=== PATIENT | male | born 1940 | race Caucasian/White ===

== ENCOUNTER 2017-02-20 13:34 | Inpatient (IN) | payer OTHER, MEDICARE ==
[~2017-02-20] VITALS: Ht 180.3 cm; Wt 63.2 kg
[~2017-02-20 13:34] MED LIST: GLIM1TAB PO; GLUCTAB PO; HYDR-3533 PO; LANTUS2P SC
[2017-02-20 13:40] VITALS: BP 130/65; PULSE 66; RESP 18; TEMP 98.1; O2SAT 99
[2017-02-20] MEDS ORDERED: MORPHINE SULFATE 4 MG/ML INJ IV PUSH ONE (13:45)
[2017-02-20] MEDS ORDERED: SODIUM CHLORIDE 0.9% FLUSH 10 ML FLUSH IVF PRN (13:45)
--- NOTE | 2017-02-20 14:42 | PD ---
HPI Chief Complaint: Fall Time Seen by Provider: 13:44 Travel History International Travel<30 days: No Contact w/Intl Traveler<30days: No Traveled to known affect area: No History of Present Illness HPI 37-year-old male presents to the ED for evaluation of 4/10 left hip pain. Pain is constant, worsened to 10/10 by any attempted ROM. Onset after the patient caught his foot while attempting to get out of his truck and fell to the concrete. He denies hitting his head or loss of consciousness. He states that he has been unable to ambulate since the accident. He states that his son picked him up and put him on the sofa where he has stayed until today. He states that he attempted to get up to go to the bathroom today and fell again. Again denies hitting his head or loss of consciousness. Denies previous injury to the hip. No other somatic complaints. Denies blood thinners. States that he last ate around 8 AM. PFSH Past Medical History Cancer: No Cardiovascular Problems: No Diabetes: Yes Patient Takes Glucophage: No Diminished Hearing: No Genitourinary: No Immune Disorder: No Musculoskeletal: No Neurologic: No Psychiatric: No Reproductive: No Respiratory: No Immunizations Current: Yes Dilation and Curettage (D&C): No Tubal Ligation: No Past Surgical History Section: Yes Social History Alcohol Use: No Tobacco Use: Yes (2 ppd) Substance Use: No Allergies-Medications (Allergen,Severity, Reaction): Coded Allergies: No Known Allergies (Verified , 12/22/15) Reported Meds & Prescriptions Reported Meds & Active Scripts Active Lortab 5 mg/325 mg (Hydrocodone/Acetaminophen 5 mg/325 mg) 1 Tab 1 Tab PO Q6H PRN Reported Lantus (Insulin Glargine) 100 Units/Ml Inj 10 Unit SC HS Metformin (Metformin HCl) 500 Mg Tab 1,000 PO BID Glimepiride 1 Mg Tab 0 PO Review of Systems Except as stated in HPI: all other systems reviewed are Neg Physical Exam Narrative GENERAL: Well-nourished, well-developed thin white male in no acute distress. SKIN: Focused skin assessment warm/dry. There is a 4 cm superficial abrasion of the anterior left [place] with surrounding erythema. Nontender. No warmth. No active bleeding. HEAD: Normocephalic. EYES: No scleral icterus. No injection or drainage. NECK: Supple, trachea midline. No JVD or lymphadenopathy. CARDIOVASCULAR: Regular rate and rhythm without murmurs, gallops, or rubs. RESPIRATORY: Breath sounds equal bilaterally. No accessory muscle use. GASTROINTESTINAL: Abdomen soft, non-tender, nondistended. MUSCULOSKELETAL: No cyanosis, or edema. FOCUSED LEFT LOWER EXTREMITY EXAM: 2+ DP pulse. Leg is resting in external rotation. No shortening noted. Tender to palpation of the anterolateral aspect of the hip and groin. Attempted internal and external rotation elicits pain. Patient is able to wiggle the toes and ankle. Sensation intact to light touch distally. BACK: Nontender without obvious deformity. No CVA tenderness. Data Data Last Documented VS Vital Signs Date Time Temp Pulse Resp B/P (MAP) Pulse Ox O2 Delivery O2 Flow Rate FiO2 02/20/17 13:40 98.1 66 18 130/65 (86) 99 Orders Orders Hip, Uni(Ap&Lat) W Ap Pelvis (02/20/17 13:44) Iv Access Insert/Monitor (02/20/17 13:44) Oximetry (02/20/17 13:44) Ecg Monitoring (02/20/17 13:44) Sodium Chloride 0.9% Flush (Ns Flush) (02/20/17 13:45) Chest, Single Ap (02/20/17 ) Morphine Inj (Morphine Inj) (02/20/17 14:45) Electrocardiogram (02/20/17 15:21) Complete Blood Count With Diff (02/20/17 15:21) Comprehensive Metabolic Panel (02/20/17 15:21) Prothrombin Time / Inr (Pt) (02/20/17 15:21) Act Partial Throm Time (Ptt) (02/20/17 15:21) Urinalysis - C+S If Indicated (02/20/17 15:21) Type And Screen (02/20/17 15:21) Urinary Catheter Insert/Apply (02/20/17 15:21) Admit Order (Ed Use Only) (02/20/17 16:03) Labs Laboratory Tests Test 02/20/17 15:20 02/20/17 15:30 Urine Color YELLOW Urine Turbidity CLEAR Urine pH 6.5 Urine Specific [place] 1.007 Urine Protein NEG mg/dL Urine Glucose (UA) NEG mg/dL Urine Ketones TRACE mg/dL Urine Occult Blood NEG Urine Nitrite NEG Urine Bilirubin NEG Urine Urobilinogen LESS THAN 2.0 MG/DL Urine Leukocyte Esterase NEG Urine RBC LESS THAN 1 /hpf Urine WBC LESS THAN 1 /hpf Microscopic Urinalysis Comment CATH-CULT NOT IND White Blood Count 17.3 TH/MM3 Red Blood Count 3.89 MIL/MM3 Hemoglobin 11.7 GM/DL Hematocrit 35.9 % Mean Corpuscular Volume 92.2 FL Mean Corpuscular Hemoglobin 30.1 PG Mean Corpuscular Hemoglobin Concent 32.7 % Red Cell Distribution Width 13.9 % Platelet Count 262 TH/MM3 Mean Platelet Volume 7.9 FL Neutrophils (%) (Auto) 71.0 % Lymphocytes (%) (Auto) 22.6 % Monocytes (%) (Auto) 5.5 % Eosinophils (%) (Auto) 0.6 % Basophils (%) (Auto) 0.3 % Neutrophils # (Auto) 12.3 TH/MM3 Lymphocytes # (Auto) 3.9 TH/MM3 Monocytes # (Auto) 1.0 TH/MM3 Eosinophils # (Auto) 0.1 TH/MM3 Basophils # (Auto) 0.1 TH/MM3 CBC Comment DIFF FINAL Differential Comment Prothrombin Time 10.5 SEC Prothromb Time International Ratio 1.0 RATIO Activated Partial Thromboplast Time 25.6 SEC Blood Urea Nitrogen 12 MG/DL Creatinine 0.84 MG/DL Random Glucose 105 MG/DL Total Protein 7.0 GM/DL Albumin 3.1 GM/DL Calcium Level 8.7 MG/DL Alkaline Phosphatase 90 U/L Aspartate Amino Transf (AST/SGOT) 11 U/L Alanine Aminotransferase (ALT/SGPT) 17 U/L Total Bilirubin 0.8 MG/DL Sodium Level 140 MEQ/L Potassium Level 4.0 MEQ/L Chloride Level 106 MEQ/L Carbon Dioxide Level 27.7 MEQ/L Anion Gap 6 MEQ/L Estimat Glomerular Filtration Rate 89 ML/MIN [facility] Medical Decision Making Medical Screen Exam Complete: Yes Emergency Medical Condition: Yes Differential Diagnosis Fracture versus dislocation versus contusion versus cellulitis versus other Narrative Course 77-year-old male with PMH of DM presents to the ED for evaluation of left hip pain. Onset after he caught his toe while attempting to get out of his truck yesterday. He states that he fell to the concrete has been unable to ambulate since then. Denies blood thinner use. Last ate around 8 AM today. Vitals reviewed. Exam suspicious for hip fracture. Neurovascularly intact distally. Patient was ordered nothing by mouth. X-rays reveals intertrochanteric fracture by my read. I spoke to Dr. Caryn Howell's PA, who recommends that the patient be admitted to medicine and made nothing by mouth at midnight tonight. They plan surgery tomorrow. CBC, CMP, UA, coags, type and screen, EKG, chest x-ray ordered and pending. Johnson catheter was placed. I discussed the fracture and the need for surgical intervention with the patient. He is agreeable to admission. Spoke with Dr. Ramos who agrees to accept the patient to the medicine service. Please see orthopedic and medicine notes for disposition. Rupa Xiong Feb 20, 2017 14:42
[2017-02-20] MEDS ORDERED: MORPHINE SULFATE 2 MG/ML INJ IV PUSH ONE (14:45)
--- NOTE | 2017-02-20 15:21 | PD ---
Data Data Last Documented VS Vital Signs Date Time Temp Pulse Resp B/P (MAP) Pulse Ox O2 Delivery O2 Flow Rate FiO2 02/20/17 16:00 98.0 77 18 139/74 (95) 99 Orders Orders Hip, Uni(Ap&Lat) W Ap Pelvis (02/20/17 13:44) Iv Access Insert/Monitor (02/20/17 13:44) Oximetry (02/20/17 13:44) Ecg Monitoring (02/20/17 13:44) Sodium Chloride 0.9% Flush (Ns Flush) (02/20/17 13:45) Chest, Single Ap (02/20/17 ) Morphine Inj (Morphine Inj) (02/20/17 14:45) Electrocardiogram (02/20/17 15:21) Complete Blood Count With Diff (02/20/17 15:21) Comprehensive Metabolic Panel (02/20/17 15:21) Prothrombin Time / Inr (Pt) (02/20/17 15:21) Act Partial Throm Time (Ptt) (02/20/17 15:21) Urinalysis - C+S If Indicated (02/20/17 15:21) Type And Screen (02/20/17 15:21) Urinary Catheter Insert/Apply (02/20/17 15:21) Admit Order (Ed Use Only) (02/20/17 16:03) Labs Laboratory Tests Test 02/20/17 15:20 02/20/17 15:30 Urine Color YELLOW Urine Turbidity CLEAR Urine pH 6.5 Urine Specific [place] 1.007 Urine Protein NEG mg/dL Urine Glucose (UA) NEG mg/dL Urine Ketones TRACE mg/dL Urine Occult Blood NEG Urine Nitrite NEG Urine Bilirubin NEG Urine Urobilinogen LESS THAN 2.0 MG/DL Urine Leukocyte Esterase NEG Urine RBC LESS THAN 1 /hpf Urine WBC LESS THAN 1 /hpf Microscopic Urinalysis Comment CATH-CULT NOT IND White Blood Count 17.3 TH/MM3 Red Blood Count 3.89 MIL/MM3 Hemoglobin 11.7 GM/DL Hematocrit 35.9 % Mean Corpuscular Volume 92.2 FL Mean Corpuscular Hemoglobin 30.1 PG Mean Corpuscular Hemoglobin Concent 32.7 % Red Cell Distribution Width 13.9 % Platelet Count 262 TH/MM3 Mean Platelet Volume 7.9 FL Neutrophils (%) (Auto) 71.0 % Lymphocytes (%) (Auto) 22.6 % Monocytes (%) (Auto) 5.5 % Eosinophils (%) (Auto) 0.6 % Basophils (%) (Auto) 0.3 % Neutrophils # (Auto) 12.3 TH/MM3 Lymphocytes # (Auto) 3.9 TH/MM3 Monocytes # (Auto) 1.0 TH/MM3 Eosinophils # (Auto) 0.1 TH/MM3 Basophils # (Auto) 0.1 TH/MM3 CBC Comment DIFF FINAL Differential Comment Prothrombin Time 10.5 SEC Prothromb Time International Ratio 1.0 RATIO Activated Partial Thromboplast Time 25.6 SEC Blood Urea Nitrogen 12 MG/DL Creatinine 0.84 MG/DL Random Glucose 105 MG/DL Total Protein 7.0 GM/DL Albumin 3.1 GM/DL Calcium Level 8.7 MG/DL Alkaline Phosphatase 90 U/L Aspartate Amino Transf (AST/SGOT) 11 U/L Alanine Aminotransferase (ALT/SGPT) 17 U/L Total Bilirubin 0.8 MG/DL Sodium Level 140 MEQ/L Potassium Level 4.0 MEQ/L Chloride Level 106 MEQ/L Carbon Dioxide Level 27.7 MEQ/L Anion Gap 6 MEQ/L Estimat Glomerular Filtration Rate 89 ML/MIN Hemoglobin A1c 7.8 % Phosphorus Level 2.4 MG/DL Magnesium Level 1.9 MG/DL 25-Hydroxy Vitamin D Total 28.9 ng/ML MDM Supervised Visit with JUHI: No Differential Diagnosis This report is in ERROR Please disregard this report and all prior copies ! This report is in ERROR Please disregard this report and all prior copies ! This report is in ERROR Please disregard this report and all prior copies ! Scripts Insulin Detemir Inj (Levemir Inj) 1,000 unit/ 10 ML Vial 13 UNITS SQ HS for Blood Sugar Management, #30 INJECTION Do not mix with any other Insulin. Prov: Jason Davis MD 02/23/17 Glimepiride (Amaryl) 1 Mg Tab 1 MG PO BID@0800,1700 for Blood Sugar Management, #60 TAB Prov: Jason Davis MD 02/23/17 Calcium Carbonate-Vitamin D (Calcium 600+D 200) 600-200 Mg-Unit Tab 1 TAB PO BID for Nutritional Supplement for 30 Days, #60 TAB 0 Refills Prov: Dante Velazquez PA/Head Waiter/Waitress Banquet PA 02/21/17 Cholecalciferol (Vitamin D3) 2,000 Unit Cap 2000 UNITS PO DAILY for Nutritional Supplement for 30 Days, CAP 0 Refills Prov: Dante Velazquez PA/Head Waiter/Waitress Banquet PA 02/21/17 Ergocalciferol (Ergocalciferol) 50,000 Unit Cap 71846 UNITS PO Q7D for Nutritional Supplement, #6 CAP Prov: Dante Velazquez PA/Head Waiter/Waitress Banquet PA 02/21/17 Rivaroxaban (Xarelto) 10 Mg Tab 10 MG PO DAILY for Blood Clot Prevention, #14 TAB 0 Refills Prov: Dante Velazquez PA/Head Waiter/Waitress Banquet PA 02/21/17 Hydrocodone-Acetaminophen (Hydrocodone-Acetaminophen) 7.5 Mg-325 Mg Tab 1 TAB PO Q4H Y for PAIN, #60 TAB 0 Refills Prov: Dante Velazquez PA/Head Waiter/Waitress Banquet PA 02/21/17 Walker/Adult/Folding (Walker/Adult/Folding) 1 Mis Mis EA .ROUTE DIRECTED, #1 0 Refills Prov: Dante Velazquez PA/Head Waiter/Waitress Banquet PA 02/21/17 Cristopher Marrero MD Feb 20, 2017 15:21
--- NOTE | 2017-02-20 15:22 | RADRPT ---
EXAM DATE/TIME: 02/20/2017 14:36 [facility] COMPARISON: CHEST SINGLE AP, December 22, 2015, 15:09. INDICATIONS : Trauma. MEDICAL HISTORY : None. SURGICAL HISTORY : None. ENCOUNTER: Initial ACUITY: 1 day PAIN SCORE: 0/10 LOCATION: Bilateral chest FINDINGS: No new focal pleural or parenchymal opacities. Cardiomediastinal contours are stable. Bony thorax is intact. CONCLUSION: 1. No acute abnormality or significant interval change. Reggie Del Toro MD on February 20, 2017 at 15:18 Board Certified Radiologist. This report was verified electronically.
--- NOTE | 2017-02-20 15:23 | RADRPT ---
EXAM DATE/TIME: 02/20/2017 14:44 [facility] COMPARISON: No previous studies available for comparison. INDICATIONS : Trauma. MEDICAL HISTORY : None. SURGICAL HISTORY : None. ENCOUNTER: Initial ACUITY: 1 day PAIN SCORE: 4/10 LOCATION: Left Hip FINDINGS: Minimally displaced intertrochanteric fracture of the left femur. Joint spaces are maintained in polo omic alignment. Sacral arches are intact. No significant soft tissue abnormality. CONCLUSION: 1. Left femoral intertrochanteric fracture. Reggie Del Toro MD on February 20, 2017 at 15:19 Board Certified Radiologist. This report was verified electronically.
[2017-02-20 15:49] LABS: BLOOD, URINE NEG (NEG); GLUCOSE,URINE NEG (NEG); KETONE, URINE TRACE mg/dL (NEG); NITRITE,URINE NEG (NEG); PH, URINE 6.5 (5.0-8.5); URINE COLOR YELLOW (YELLW/STRAW)
[2017-02-20 15:50] LABS: AUTOMATED NEUTROPHIL # 12.3 TH/MM3 (1.8-7.7); BASOPHIL # 0.1 TH/MM3 (0-0.2); BASOPHIL % 0.3 % (0.0-2.0); EOSINOPHIL # 0.1 TH/MM3 (0-0.4); EOSINOPHIL % 0.6 % (0.0-4.0); HEMATOCRIT 35.9 % (39.0-51.0); HEMO FLAGS DIFF FINAL; LYMPH % 22.6 % (9.0-44.0); LYMPHOCYTE # 3.9 TH/MM3 (1.0-4.8); MEAN CELL VOLUME 92.2 FL (80.0-100.0); MEAN CORPUSCULAR HEMOGLOBIN 30.1 PG (27.0-34.0); MEAN CORPUSCULAR HGB CONC 32.7 % (32.0-36.0); MONO % 5.5 % (0.0-8.0); PLATELET COUNT 262 TH/MM3 (150-450); RED BLOOD COUNT 3.89 MIL/MM3 (4.50-5.90); RED CELL DISTRIBUTION WIDTH 13.9 % (11.6-17.2); WHITE BLOOD COUNT 17.3 TH/MM3 (4.0-11.0)
[2017-02-20 15:51] LABS: COMMENT (UR) CATH-CULT NOT IND; CULTURE IF INDICATED CATH CULTURE NOT IND
[2017-02-20 16:00] VITALS: BP 139/74; PULSE 77; RESP 18; TEMP 98; O2SAT 99
[2017-02-20 16:06] LABS: APTT (PATIENT) 25.6 SEC (24.3-30.1); PROTHROMBIN TIME - PATIENT 10.5 SEC (9.8-11.6)
[2017-02-20 16:15] LABS: ALT (GPT) 17 U/L (12-78); ANION GAP 6 MEQ/L (5-15); AST (GOT) 11 U/L (15-37); BICARBONATE 27.7 MEQ/L (21.0-32.0); BLOOD UREA NITROGEN 12 MG/DL (7-18); CHLORIDE 106 MEQ/L (98-107); GLOMERULAR FILTRATION RATE 89 ML/MIN (>89); SODIUM (NA) 140 MEQ/L (136-145)
[2017-02-20 16:17] LABS: ALKALINE PHOSPHATASE 90 U/L (45-117); TOTAL BILIRUBIN ADULT 0.8 MG/DL (0.2-1.0)
[2017-02-20 16:50] VITALS: BP 141/86; PULSE 75; RESP 16; O2SAT 100
--- NOTE | 2017-02-20 17:16 | HHI.HP ---
HPI Service [facility] Hospitalists Primary Care Physician Unknown Admission Diagnosis left intertrochanteric hip fracture Diagnoses: Chief Complaint: Left hip pain s/p fall Travel History International Travel<30 Days: No Contact w/Intl Traveler <30 Da: No Traveled to Known Affected Are: No History of Present Illness Written by Migdalia Schmitz, acting as scribe for Dr. Ramos on 02/20/17 at 17: 16. This is a 77yo male with a PMHX of DM type 2 and ongoing tobaccoism who presents to [facility] ED with complaints of left hip pain s/p fall. Patient states he caught his left foot while trying to get out of his truck and fell to the concrete. He denies hitting his head or loss of consciousness. He has not been able to bear any weight since the injury. He attempted to walk to the bathroom and fell again. In the ED, xray of the left hip was obtained and revealed an intertrochanteric hip fracture. Review of Systems Constitutional: DENIES: Diaphoretic episodes, Fatigue, Fever, Weight gain, Weight loss, Chills, Dizziness, Change in appetite Endocrine: DENIES: Heat/cold intolerance, Polydipsia, Polyuria Eyes: DENIES: Blurred vision, Diplopia, Eye inflammation, Eye pain Ears, nose, mouth, throat: DENIES: Tinnitus, Hearing loss, Vertigo, Nasal discharge Respiratory: COMPLAINS OF: Cough, Sputum production, DENIES: Apneas, Snoring, Wheezing, Hemoptysis Cardiovascular: DENIES: Chest pain, Palpitations, Syncope, Dyspnea on Exertion , PND Gastrointestinal: DENIES: Abdominal pain, Black stools, Bloody stools, Constipation, Diarrhea Musculoskeletal: COMPLAINS OF: Joint pain, DENIES: Muscle aches, Stiffness, Joint Swelling Integumentary: DENIES: Abnormal pigmentation, Nail changes, Rash Hematologic/lymphatic: DENIES: Bruising, Lymphadenopathy Immunologic/allergic: DENIES: Eczema, Urticaria Neurologic: COMPLAINS OF: Abnormal gait, DENIES: Headache, Localized weakness, Paresthesias, Seizures, Speech Problems Psychiatric: DENIES: Anxiety, Confusion, Mood changes, Depression, Hallucinations Except as stated in HPI: all other systems reviewed are Neg Past Family Social History Past Medical History DM, type 2 Tobaccoism Past Surgical History I&D right thumb Reported Medications Lortab 5 mg/325 mg (Hydrocodone/Acetaminophen 5 mg/325 mg) 1 Tab 1 Tab PO Q6H PRN Lantus (Insulin Glargine) 100 Units/Ml Inj 10 Unit SC HS Metformin (Metformin HCl) 500 Mg Tab 1,000 PO BID Glimepiride 1 Mg Tab 0 PO Allergies: Coded Allergies: No Known Allergies (Verified , 12/22/15) Active Ordered Medications Current Medications Medications (Trade) Dose Ordered Sig/Jerry Route Start Time Stop Time Status Last Admin (NS Flush) 2 ml UNSCH PRN IVF 02/20/17 13:45 Family History Reviewed with patient, noncontributory Social History Patient smokes one pack of cigarettes per day. He denies any EtOH use or illicit drug use. Physical Exam Vital Signs Vital Signs Date Time Temp Pulse Resp B/P (MAP) Pulse Ox O2 Delivery O2 Flow Rate FiO2 02/20/17 16:50 75 16 141/86 (104) 100 Room Air 02/20/17 13:40 98.1 66 18 130/65 (86) 99 Physical Exam GENERAL: This is a well-nourished, well-developed patient, in no apparent distress. Awake and alert. SKIN: Cool and dry. (+)wound 4cm superficial abrasion on LLE. HEAD: Atraumatic. Normocephalic. No temporal or scalp tenderness. EYES: Pupils equal round and reactive. Extraocular motions intact. No scleral icterus. No injection or drainage. ENT: Nose without bleeding or purulent drainage. Throat without erythema, tonsillar hypertrophy or exudate. Uvula midline. Airway patent. NECK: Trachea midline. No lymphadenopathy. Supple, nontender, no meningeal signs. CARDIOVASCULAR: Regular rate and rhythm without murmurs, gallops, or rubs. RESPIRATORY: Coarse BS noted in all lung figueroa. (+)Rhonchi. GASTROINTESTINAL: Abdomen soft, non-tender, nondistended. No hepato-splenomegaly , or palpable masses. No guarding. GENITOURINARY: Hebert in place. MUSCULOSKELETAL: Extremities without clubbing, cyanosis, or edema. Left leg externally rotated. Left hip pain elicited with any attempts at ROM. NEUROLOGICAL: Awake and alert. Able to move all extremities except left hip. Motor and sensory function intact distally LLE. Normal speech. PSYCHIATRIC: Appropriate affect and mood. Normal insight and judgement. Laboratory Laboratory Tests Test 02/20/17 15:20 02/20/17 15:30 Urine Color YELLOW Urine Turbidity CLEAR Urine pH 6.5 Urine Specific [place] 1.007 Urine Protein NEG Urine Glucose (UA) NEG Urine Ketones TRACE Urine Occult Blood NEG Urine Nitrite NEG Urine Bilirubin NEG Urine Urobilinogen LESS THAN 2.0 Urine Leukocyte Esterase NEG Urine RBC LESS THAN 1 Urine WBC LESS THAN 1 Microscopic Urinalysis Comment CATH-CULT NOT IND White Blood Count 17.3 Red Blood Count 3.89 Hemoglobin 11.7 Hematocrit 35.9 Mean Corpuscular Volume 92.2 Mean Corpuscular Hemoglobin 30.1 Mean Corpuscular Hemoglobin Concent 32.7 Red Cell Distribution Width 13.9 Platelet Count 262 Mean Platelet Volume 7.9 Neutrophils (%) (Auto) 71.0 Lymphocytes (%) (Auto) 22.6 Monocytes (%) (Auto) 5.5 Eosinophils (%) (Auto) 0.6 Basophils (%) (Auto) 0.3 Neutrophils # (Auto) 12.3 Lymphocytes # (Auto) 3.9 Monocytes # (Auto) 1.0 Eosinophils # (Auto) 0.1 Basophils # (Auto) 0.1 CBC Comment DIFF FINAL Differential Comment Prothrombin Time 10.5 Prothromb Time International Ratio 1.0 Activated Partial Thromboplast Time 25.6 Blood Urea Nitrogen 12 Creatinine 0.84 Random Glucose 105 Total Protein 7.0 Albumin 3.1 Calcium Level 8.7 Alkaline Phosphatase 90 Aspartate Amino Transf (AST/SGOT) 11 Alanine Aminotransferase (ALT/SGPT) 17 Total Bilirubin 0.8 Sodium Level 140 Potassium Level 4.0 Chloride Level 106 Carbon Dioxide Level 27.7 Anion Gap 6 Estimat Glomerular Filtration Rate 89 Result Diagram: 02/20/17 1530 02/20/17 1530 Imaging Last Impressions Hip and Pelvis X-Ray 02/20/17 1344 Signed Impressions: Service Date/Time: Monday, February 20, 2017 14:44 - CONCLUSION: 1. Left femoral intertrochanteric fracture. Reggie Del Toro MD Chest X-Ray 02/20/17 0000 Signed Impressions: Service Date/Time: Monday, February 20, 2017 14:36 - CONCLUSION: 1. No acute abnormality or significant interval change. MD Litzy Mandel VTE Risk Assessment Caprini VTE Risk Assessment: Mod/High Risk (score >= 2) Caprini Risk Assessment Model Point Value = 1 Point Value = 2 Point Value = 3 Point Value = 5 Age 41-60 Minor surgery BMI > 25 kg/m2 Swollen legs Varicose veins or History of unexplained or recurrent spontaneous Oral contraceptives or hormone replacement Sepsis (< 1 month) Serious lung disease, including pneumonia (< 1 month) Abnormal pulmonary function Acute myocardial infarction Congestive heart failure (< 1 month) History of inflammatory bowel disease Medical patient at bed rest Age 61-74 Arthroscopic surgery Major open surgery (> 45 min) Laparoscopic surgery (> 45 min) Malignancy Confined to bed (> 72 hours) Immobilizing plaster cast Central venous access Age >= 75 History of VTE Family history of VTE Factor V Leiden Prothrombin 20759G Lupus anticoagulant Anticardiolipin antibodies Elevated serum homocysteine Heparin-induced thrombocytopenia Other congenital or acquired thrombophilia Stroke (< 1 month) Elective arthroplasty Hip, pelvis, or leg fracture Acute spinal cord injury (< 1 month) Prophylaxis Regimen Total Risk Factor Score Risk Level Prophylaxis Regimen 0-1 Low Early ambulation 2 Moderate Order ONE of the following: *Sequential Compression Device (SCD) *Heparin 5000 units SQ BID 3-4 Higher Order ONE of the following medications: *Heparin 5000 units SQ TID *Enoxaparin/Lovenox 40 mg SQ daily (WT < 150 kg, CrCl > 30 mL/min) *Enoxaparin/Lovenox 30 mg SQ daily (WT < 150 kg, CrCl > 10-29 mL/min) *Enoxaparin/Lovenox 30 mg SQ BID (WT < 150 kg, CrCl > 30 mL/min) AND/OR *Sequential Compression Device (SCD) 5 or more Highest Order ONE of the following medications: *Heparin 5000 units SQ TID (Preferred with Epidurals) *Enoxaparin/Lovenox 40 mg SQ daily (WT < 150 kg, CrCl > 30 mL/min) *Enoxaparin/Lovenox 30 mg SQ daily (WT < 150 kg, CrCl > 10-29 mL/min) *Enoxaparin/Lovenox 30 mg SQ BID (WT < 150 kg, CrCl > 30 mL/min) AND *Sequential Compression Device (SCD) Assessment and Plan Assessment and Plan Left intertrochanteric hip fracture - Xray left hip reveals minimally displaced intertrochanteric fracture of the left femur, images personally reviewed - Orthopedics consulted by ED. They plan for surgery tomorrow. - NPO after MN - pain management with bowel regimen - hebert care - obtain Vitamin D level Leukocytosis - possibly reactive - patient is afebrile. Does not appear septic. - UA negative - CXR no acute abnormality appreciated, images personally reviewed DM, type 2 - diabetic diet - accucheck - ISS - hold home diabetic medications for now Ongoing tobaccoism Suspect underlying COPD - discussed importance of smoking cessation. Nicotine patch ordered. - Duonebs scheduled and as needed - monitor respiratory status DVT prophylaxis - chemoprophylaxis contraindicated secondary to upcoming surgical procedure - Bilateral SCD/YARELIS hose This note was transcribed by veronica SCHMITZ PAC,[]. I, Dr. Roberto Ramos personally performed the history, physical exam, and medical decision making; and confirmed the accuracy of the information in the transcribed note. Authenticated by Dr. Roberto Ramos on 02/20/17 at 17:54. Code Status FULL CODE Discussed Condition With ED physician, patient, nursing staff Physician Certification 2 Midnight Certification Type: Admission for Inpatient Services Order for Inpatient Services The services are ordered in accordance with Medicare regulations or non- Medicare payer requirements, as applicable. In the case of services not specified as inpatient-only, they are appropriately provided as inpatient services in accordance with the 2-midnight benchmark. Estimated LOS (days): 3 3 days is the estimated time the patient will need to remain in the hospital, assuming treatment plan goals are met and no additional complications. Post-Hospital Plan: Not yet determined Migdalia Schmitz Feb 20, 2017 17:16 Roberto Ramos DO Feb 20, 2017 17:55
[2017-02-20] MEDS ORDERED: ACETAMINOPHEN 325 MG TAB PO PRN (18:00)
[2017-02-20] MEDS ORDERED: SENNOSIDES 8.6 MG TAB PO PRN (18:00)
[2017-02-20] MEDS ORDERED: BISACODYL 10 MG SUPP RECTAL PRN (18:00)
[2017-02-20] MEDS ORDERED: oxyCODONE/ACETAMINOPHEN 5 MG/325 MG TAB PO PRN (18:00)
[2017-02-20] MEDS ORDERED: MAGNESIUM HYDROXIDE SUSP 30 ML CUP PO PRN (18:00)
[2017-02-20] MEDS ORDERED: NALOXONE HCL 0.4 MG/ML AMP IV PUSH PRN (18:00)
[2017-02-20] MEDS ORDERED: oxyCODONE/ACETAMINOPHEN 10 MG/325 MG TAB PO PRN (18:00)
[2017-02-20] MEDS ORDERED: MORPHINE SULFATE 2 MG/ML INJ IV PUSH PRN (18:00)
[2017-02-20] MEDS ORDERED: diphenhydrAMINE HCL 25 MG CAP PO PRN (18:00)
[2017-02-20] MEDS ORDERED: ONDANSETRON HCL 4 MG/2 ML VIAL IVP PRN (18:00)
[2017-02-20] MEDS ORDERED: LACTULOSE SYRUP 20 GM/30 ML CUP PO PRN (18:00)
[2017-02-20] MEDS: NICOTINE 21 MG/24 HR PATCH T-DERMAL SCH (18:15)
[2017-02-20 20:00] VITALS: BP 138/65; PULSE 72; RESP 18; TEMP 95; O2SAT 97
[2017-02-20] MEDS: DOCUSATE SODIUM 50 MG/SENNA 8.6 MG TAB PO SCH (20:32)
[2017-02-20 21:08] LABS: MAGNESIUM 1.9 MG/DL (1.5-2.5)
[2017-02-21] VITALS (7 sets, daily range): BP systolic 121–152; BP diastolic 59–75; PULSE 62–79; RESP 18; TEMP 96–99.5; O2SAT 95–97
[2017-02-21] MEDS ORDERED: INSULIN HUMAN REGULAR 1,000 UNITS/10 ML VIAL SQ PRN (01:15)
[2017-02-21] MEDS ORDERED: CHLORHEXIDINE GLUCONATE 2 % 1 PACK (2 CLOTHS) TOPICAL PRN (01:15)
[2017-02-21] MEDS ORDERED: POVIDONE IODINE 5% (ANTISEPSIS KIT) 4 APPLICATIONS EACH NARE PRN (01:15)
[2017-02-21] MEDS ORDERED: METOPROLOL TARTRATE 25 MG TAB PO PRN (01:15)
[2017-02-21] MEDS ORDERED: SODIUM CHLORID 0.9% 500 ML IV PRN (01:15)
[2017-02-21] MEDS ORDERED: LACTATED RINGER'S 1000 ML IV PRN (01:15)
[2017-02-21 06:42] LABS: AUTOMATED NEUTROPHIL # 9.4 TH/MM3 (1.8-7.7); BASOPHIL % 0.2 % (0.0-2.0); EOSINOPHIL # 0.2 TH/MM3 (0-0.4); EOSINOPHIL % 1.1 % (0.0-4.0); HEMATOCRIT 35.6 % (39.0-51.0); HEMO FLAGS DIFF FINAL; LYMPH % 25.5 % (9.0-44.0); LYMPHOCYTE # 3.6 TH/MM3 (1.0-4.8); MEAN CORPUSCULAR HEMOGLOBIN 31.3 PG (27.0-34.0); MEAN CORPUSCULAR HGB CONC 34.1 % (32.0-36.0); MONO % 6.8 % (0.0-8.0); NEUT % 66.4 % (16.0-70.0); PLATELET COUNT 254 TH/MM3 (150-450); RED BLOOD COUNT 3.87 MIL/MM3 (4.50-5.90); RED CELL DISTRIBUTION WIDTH 13.9 % (11.6-17.2); WHITE BLOOD COUNT 14.1 TH/MM3 (4.0-11.0)
--- NOTE | 2017-02-21 07:02 | PD.ORT.PN ---
Subjective Subjective Remarks fell out of truck no other associated inj. hx of DM and smokes 1 PPD left hip pain Objective Vitals Vital Signs Date Time Temp Pulse Resp B/P (MAP) Pulse Ox O2 Delivery O2 Flow Rate FiO2 02/21/17 04:00 99.2 70 18 130/59 (82) 95 02/21/17 00:00 98.8 68 18 126/68 (87) 97 02/20/17 20:00 95.0 72 18 138/65 (89) 97 02/20/17 16:50 75 16 141/86 (104) 100 Room Air 02/20/17 16:00 98.0 77 18 139/74 (95) 99 02/20/17 13:40 98.1 66 18 130/65 (86) 99 I/O 02/20/17 02/20/17 02/20/17 02/21/17 02/21/17 02/21/17 07:00 15:00 23:00 07:00 15:00 23:00 Output Total 950 ml Balance -950 ml Output Urine Total 950 ml # Bowel Movements 0 Result Diagram: 02/21/17 0612 02/20/17 1530 Other Results Laboratory Tests Test 02/20/17 15:30 Prothromb Time International Ratio 1.0 RATIO Prothrombin Time 10.5 SEC (9.8-11.6) Imaging Last 24 hours Impressions Hip and Pelvis X-Ray 02/20/17 1344 Signed Impressions: Service Date/Time: Monday, February 20, 2017 14:44 - CONCLUSION: 1. Left femoral intertrochanteric fracture. Reggie Del Toro MD Objective Remarks LLE: pain with hip motion. no pain in knee or ankle. nvi Assessment & Plan Assessment and Plan 1) Leftt Intertroch hip fx -npo -consents -surgery this AM POST OP: -WBAT -daily dressing changes POD 2 -ortho cleared for DC home as soon as patient able to ambulate safely and pain controlled -may require SNF. CM for DC planning -f/u with Justyna or PA in 2 weeks -scripts on chart Dante Velazquez/Dogman/Woman PA Feb 21, 2017 07:02
[2017-02-21 07:04] LABS: ALT (GPT) 15 U/L (12-78); ANION GAP 7 MEQ/L (5-15); AST (GOT) 8 U/L (15-37); BICARBONATE 28.3 MEQ/L (21.0-32.0); BLOOD UREA NITROGEN 10 MG/DL (7-18); CHLORIDE 104 MEQ/L (98-107); GLOMERULAR FILTRATION RATE 103 ML/MIN (>89); POTASSIUM 4.2 MEQ/L (3.5-5.1); SODIUM (NA) 139 MEQ/L (136-145)
[2017-02-21] MEDS ORDERED: HYDR-3580 PO (07:04)
[2017-02-21] MEDS ORDERED: WALKER/ADULT/FO1 MIS (07:04)
[2017-02-21] MEDS ORDERED: XARE10TA PO (07:04)
--- NOTE | 2017-02-21 07:06 | HHI.FF ---
Face to Face Verification Diagnosis: (1) Intertrochanteric fracture of right hip Physical Therapy Gait training Hip: Hip fracture, Protocol: Right Right LE Weight Bearing: WB as tolerated Nursing Dressing Changes: Daily dressing change, 4x4s, Paper tape, Xeroform I have seen patient Alfredo Mantilla on 02/21/17. My clinical findings support the need for the requested home health care services because: Ltd mobility - disease progression I certify that my clinical findings support that this patient is homebound because: Post-op weakness Dante Velazquez/Insole Taper JONATHAN Feb 21, 2017 07:06
[2017-02-21 07:07] LABS: ALKALINE PHOSPHATASE 88 U/L (45-117); TOTAL BILIRUBIN ADULT 0.9 MG/DL (0.2-1.0)
[2017-02-21] MEDS ORDERED: ACETAMINOPHEN 1000 MG/100 ML 100 ML IV ONE (07:11)
[2017-02-21] MEDS ORDERED: VITA2000 PO (07:16)
[2017-02-21] MEDS ORDERED: VITA500012 PO (07:16)
[2017-02-21] MEDS ORDERED: CALCTAB19 PO (07:16)
[2017-02-21] MEDS ORDERED: ceFAZolin 2 GM PREMIX 50 ML ONE (07:36)
[2017-02-21] MEDS ORDERED: VANCOMYCIN HCL 1000 MG VIAL ONE (07:36)
[2017-02-21] MEDS ORDERED: SODIUM CHLOR 0.9% 250 ML INJ 250 ML ONE (07:37)
[2017-02-21] MEDS: RESP: ALBUTEROL 2.5 MG/IPRATROPIUM 0.5 MG NEB (SCH) NEB ×4 (08:00→20:00)
[2017-02-21] MEDS ORDERED: BUPIVACAINE/EPINEPHRINE 0.25% PF 30 ML VIAL ONE (08:03)
[2017-02-21 08:14] LABS: HEMOGLOBIN A1a 0.9 %; HEMOGLOBIN A1b 2.3 %; HEMOGLOBIN Ao 82.4 %; HEMOGLOBIN LA1C 1.8 %; HEMOGLOBIN P3 4.2 %
--- NOTE | 2017-02-21 08:14 | PD.OP ---
cc: Misbah Rubin MD Operative Report Date of Surgery: Feb 21, 2017 Preoperative Diagnosis: left hip intertroch fracture Postoperative Diagnosis: Procedure: Left hip reduction and intramedullary nail fixation Anesthesia: Gen. Surgeon: Misbah Rubin Bonding Machine Operator(s): IVANA Schumacher PA-C The surgical procedure was assisted by my physician assistant field hockey coach. My P.A. presence was necessary throughout this case for the manipulation and positioning of the surgical extremity. My P.A. was assisting me throughout the duration of this procedure. The skill set of a physician assistant field hockey coach was medically necessary to complete this procedure. During the surgical case the surgical scheduler was working at the back table and the physician assistant field hockey coach was directly assisting me. Operation and Findings: Implants used: [10]mm 130 Synthes TFNA short troch nail Plan of activity: Weight-bear as tolerated Patient was seen and evaluated preoperatively. The patient has significant hip pain from intertrochanteric hip fracture. The risk and benefits of surgery were discussed in depth with the patient to include bleeding infection nonunion malunion and need for hip replacement painful hardware as well as medical competitions including but not stroke heart attack and . Informed consent was obtained. Operative site was marked. Patient was brought to the operating room and placed on fracture table. IV sedation was administered by anesthesiologist. Timeout procedure was performed. Hip and leg were prepped with alcohol followed by DuraPrep and draped in the usual sterile fashion. IV antibiotics were given prior to incision. Procedure began with reduction of fracture. Traction was applied. The leg was manipulated to achieve reduction. Excellent reduction was achieved. Fluoroscopy was used to confirm reduction. A three inch incision was made proximal to the trochanter. Subcutaneous tissue was dissected bluntly. Guidepin was placed at the tip of the trochanter and advanced into the femoral canal. Fluoroscopy confirmed appropriate guidepin placement. A opening reamer was placed over the guidepin. The Synthes TFNA nail was attached to the insertion handle. Nail was now placed through the tip of the trochanter into the femoral canal. Fluoroscopy confirmed appropriate nail placement. A second incision was made over the lateral thigh. Cannulas were placed through the insertion handle down to the femur. Guidepin was now placed through the femoral nail into the center of the femoral head. Fluoroscopy confirmed appropriate guidepin placement. Screw length was measured. Cannulated drill was placed over the guidepin. Appropriate length lag screw was now placed. Traction was released and compression was applied. The set screw was now tightened in dynamic mode. Using the insertion handle as a guide a distal interlocking screw was drilled and placed. Final fluoroscopy revealed well aligned fracture with well-placed hardware. Incision was closed with 3-0 Vicryl and estela. Sterile dressings were applied. Patient was awakened and transferred to recovery room. Misbah Rubin MD Feb 21, 2017 08:14
[2017-02-21] MEDS ORDERED: MORPHINE SULFATE 2 MG/ML INJ IV PUSH PRN (08:15)
[2017-02-21] MEDS ORDERED: DO NOT ADM ANY ANTICOAGULANT DRUGS PRN (09:00)
[2017-02-21] MEDS: DOCUSATE SODIUM 50 MG/SENNA 8.6 MG TAB PO SCH ×2 (09:00→20:46)
[2017-02-21] MEDS: REMOVE OLD PATCH T-DERMAL SCH (09:00)
[2017-02-21] MEDS ORDERED: ERGOCALCIFEROL (VIT D2) 50,000 UNIT CAP PO ONE (09:00)
--- NOTE | 2017-02-21 09:14 | MB ---
cc: ANGLE HANLEY DATE OF CONSULTATION: 02/21/2017 REASON FOR CONSULTATION Left hip intertrochanteric fracture. CONSULTING PHYSICIAN Dr. Roberto Ramos HISTORY Alfredo is a 77-year-old male who had a fall. He states he states that his left foot caught as he was getting out of his truck. He fell on the concrete. He had immediate left hip pain. He is unable to bear weight. He had difficulty ambulating. He has an emergency room where x-rays revealed a left hip intertrochanteric fracture. He is currently awake and alert on the orthopedic floor. His only complaint is his left hip. He has a history of diabetes and smoking. PAST MEDICAL HISTORY Illness type 2 diabetes smoking dependence. SURGERIES Right thumb surgery MEDICATIONS: Insulin Metformin Glimepiride Hydrocodone. ALLERGIES NO KNOWN DRUG ALLERGIES. SOCIAL HISTORY The patient does smoke a pack. Today he denies alcohol or drug use. REVIEW OF SYSTEMS The patient denies headache, visual changes, neck pain, chest pain, shortness of breath, abdominal pain, nausea or recent weight loss or numbness and extremities. He complains of left hip pain. Pain is worse with movement. REVIEW OF SYSTEMS The patient denies headache, visual changes, neck pain, chest pain, shortness of breath, abdominal pain, nausea, vomiting, fevers or chills, recent weight loss, loss of bowel or bladder incontinence or numbness or tingling of his extremities. He complains of left hip pain. PHYSICAL EXAMINATION: IN GENERAL: Physical dam the patient is a thin 77-year male in no acute distress. He is awake and alert. He is alert and oriented x3. VITAL SIGNS: temperature 99.2, pulse 70, respirations 18, blood pressure 130/59, O2 sat 95% on room air. HEAD, EYES, EARS, NOSE, AND THROAT: The patient is normocephalic. Pupils are equal. NECK: : Soft, nontender. Trachea is midline. ABDOMEN: Soft, nontender, nondistended. EXTREMITIES: Examination of bilateral upper extremities reveals no pain with shoulder, elbow or wrist motion. She has he has intact sensation in all fingers. She has good cap refill fingers. Skin is intact both hands. Parliamentary Counsel strength is +5. Examination of right leg reveals no pain with hip, knee or ankle motion. Skin is intact. Dorsalis pedis pulses palpable. Sensation is intact. Examination of left leg reveals pain with any hip motion. He is diffusely tender to palpation on the proximal femur. He has no tension around his knee, tibia or ankle. Skin is intact. Dorsalis pedis pulses palpable. Sensation is intact. X-RAYS X-rays of left hip reviewed x-rays reveal a displaced left hip intertrochanteric fracture. IMPRESSION 1. Type 2 diabetes 2. Smoking dependence 3. Left hip intertrochanteric fracture. PLAN The option discussed with the patient at this point I would recommend reduction intramedullary fixation of left hip. Risks of surgery include bleeding, infection, injury to blood vessels, nonunion, malunion, painful hardware as well as medical complications including blood clot, stroke, heart attack and . All questions were answered. I will plan on surgery today. A mid-level provider in my office (nurse practitioner or physician glass ribbon machine operator assistant) may see this patient on follow-up visits and continue to implement the objectives of this plan including: Starting or adjusting medications, injections , cast application, orthotics, brace application, physical therapy, radiological studies (including x-ray, MRI, CT, ultrasound, bone scan), vascular studies, neurologic studies, specialist consultation, and proceeding with surgical management, as appropriate. MD JOANIE Hoffman/yessi /8:03 AM /8:40 AM OMAR
--- NOTE | 2017-02-21 09:17 | RADRPT ---
EXAM DATE/TIME: 02/21/2017 08:10 [facility] COMPARISON: No previous studies available for comparison. INDICATIONS : Open reduction internal fixation of the left hip. MEDICAL HISTORY : None. SURGICAL HISTORY : None. ENCOUNTER: Subsequent ACUITY: 2 days PAIN SCORE: Non-responsive. LOCATION: Left hip. FINDINGS: Intertrochanteric nailing left hip in anatomic alignment. CONCLUSION: Anatomic alignment Roberto Barnett MD FACR on February 21, 2017 at 9:12 Board Certified Radiologist. This report was verified electronically.
[2017-02-21] MEDS: CALCIUM/VITAMIN D 250 MG/125 U TAB PO SCH ×3 (09:33→18:02)
[2017-02-21] MEDS: CHOLECALCIFEROL (VIT D3) 5000 UNIT CAP PO SCH (09:33)
[2017-02-21] MEDS: NICOTINE 21 MG/24 HR PATCH T-DERMAL SCH (09:34)
--- NOTE | 2017-02-21 09:57 | HHI.PR ---
Subjective Remarks The patient is in the chair says pain is fairly controlled by current pain medications. Denies nausea or vomiting. He has constipation. No fever or chills. No shortness of breath. Objective Vitals Vital Signs Date Time Temp Pulse Resp B/P (MAP) Pulse Ox O2 Delivery O2 Flow Rate FiO2 02/21/17 09:15 98.4 60 16 153/70 (97) 95 Room Air 02/21/17 09:00 61 16 144/66 (92) 95 Room Air 02/21/17 08:45 64 16 140/65 (90) 94 Room Air 02/21/17 08:39 98.4 66 16 161/67 (98) 100 Nasal Cannula 2 02/21/17 04:00 99.2 70 18 130/59 (82) 95 02/21/17 00:00 98.8 68 18 126/68 (87) 97 02/20/17 20:00 95.0 72 18 138/65 (89) 97 02/20/17 16:50 75 16 141/86 (104) 100 Room Air 02/20/17 16:00 98.0 77 18 139/74 (95) 99 02/20/17 13:40 98.1 66 18 130/65 (86) 99 I/O 02/20/17 02/20/17 02/20/17 02/21/17 02/21/17 02/21/17 06:59 14:59 22:59 06:59 14:59 22:59 Output Total 950 ml Balance -950 ml Output Urine Total 950 ml # Bowel Movements 0 Result Diagram: 02/21/17 0612 02/21/17 0612 Imaging Last Impressions Hip X-Ray 02/21/17 0000 Signed Impressions: Service Date/Time: Tuesday, February 21, 2017 08:10 - CONCLUSION: Anatomic alignment Roberto Barnett MD FACR Hip and Pelvis X-Ray 02/20/17 1344 Signed Impressions: Service Date/Time: Monday, February 20, 2017 14:44 - CONCLUSION: 1. Left femoral intertrochanteric fracture. Reggie Del Toro MD Chest X-Ray 02/20/17 0000 Signed Impressions: Service Date/Time: Monday, February 20, 2017 14:36 - CONCLUSION: 1. No acute abnormality or significant interval change. Reggie Del Toro MD Objective Remarks GENERAL: This is a well-nourished, well-developed patient, in no apparent distress. Awake and alert. SKIN: Cool and dry. (+)wound 4cm superficial abrasion on LLE. CARDIOVASCULAR: Regular rate and rhythm without murmurs, gallops, or rubs. RESPIRATORY: Coarse BS noted in all lung figueroa. (+)Rhonchi. GASTROINTESTINAL: Abdomen soft, non-tender, nondistended. No hepato-splenomegaly , or palpable masses. No guarding. GENITOURINARY: Hebert in place. MUSCULOSKELETAL: Extremities without clubbing, cyanosis, or edema. Left leg externally rotated. Left hip pain with dressing in place, CDI NEUROLOGICAL: Awake and alert. Able to move all extremities except left hip. Motor and sensory function intact distally LLE. Normal speech. PSYCHIATRIC: Appropriate affect and mood. Normal insight and judgement. Procedures S/P Left hip reduction and intramedullary nail fixation by Dr Jansen 02/21/17 A/P Assessment and Plan Left intertrochanteric hip fracture - Xray left hip reveals minimally displaced intertrochanteric fracture of the left femur, images personally reviewed - Orthopedics consulted by ED. - S/P Left hip reduction and intramedullary nail fixation by Dr Jansen - pain management with bowel regimen - hebert care - obtain Vitamin D level Leukocytosis - possibly reactive - patient is afebrile. Does not appear septic. - UA negative - CXR no acute abnormality appreciated, images personally reviewed DM, type 2 - diabetic diet - accucheck - ISS - hold home diabetic medications for now Ongoing tobaccoism Suspect underlying COPD - discussed importance of smoking cessation. Nicotine patch ordered. - Duonebs scheduled and as needed - monitor respiratory status DVT prophylaxis - chemoprophylaxis contraindicated secondary to upcoming surgical procedure - Bilateral SCD/YARELIS hose Discussed Condition With patient, nurse DC plan when improved and cleared by Laurie De La Cruz MD Feb 21, 2017 09:56
[2017-02-21] MEDS ORDERED: GLUCAGON 1 MG/ML VIAL OTHER PRN (22:15)
[2017-02-21] MEDS ORDERED: DEXTROSE 50% IN WATER 50 ML VIAL(D50) IV PUSH PRN (22:15)
[2017-02-21] MEDS: INSULIN ASPART SUPPLEMENTAL SCALE SQ SCH (23:16)
[2017-02-22] VITALS (8 sets, daily range): BP systolic 97–136; BP diastolic 53–72; PULSE 66–74; RESP 17–18; TEMP 97.3–98.6; O2SAT 93–97
[2017-02-22 07:17] LABS: BASOPHIL % 0.3 % (0.0-2.0); EOSINOPHIL # 0.1 TH/MM3 (0-0.4); EOSINOPHIL % 0.3 % (0.0-4.0); HEMATOCRIT 34.9 % (39.0-51.0); HEMO FLAGS DIFF FINAL; LYMPH % 22.8 % (9.0-44.0); LYMPHOCYTE # 3.9 TH/MM3 (1.0-4.8); MEAN CELL VOLUME 91.6 FL (80.0-100.0); MEAN CORPUSCULAR HGB CONC 33.8 % (32.0-36.0); MONO % 6.5 % (0.0-8.0); NEUT % 70.1 % (16.0-70.0); PLATELET COUNT 282 TH/MM3 (150-450); RED BLOOD COUNT 3.81 MIL/MM3 (4.50-5.90); RED CELL DISTRIBUTION WIDTH 13.8 % (11.6-17.2); WHITE BLOOD COUNT 17.1 TH/MM3 (4.0-11.0)
[2017-02-22 07:33] LABS: MAGNESIUM 1.8 MG/DL (1.5-2.5); POTASSIUM 4.2 MEQ/L (3.5-5.1)
[2017-02-22] MEDS: CALCIUM/VITAMIN D 250 MG/125 U TAB PO SCH ×3 (07:46→16:53)
[2017-02-22] MEDS: CHOLECALCIFEROL (VIT D3) 5000 UNIT CAP PO SCH (07:46)
[2017-02-22] MEDS: ENOXAPARIN SODIUM 30 MG/0.3 ML SYRINGE SQ SCH (07:47)
[2017-02-22] MEDS: ACETAMINOPHEN/HYDROcodone 325 MG/7.5 MG TAB PO PRN ×2 (07:47→15:03)
[2017-02-22] MEDS: NICOTINE 21 MG/24 HR PATCH T-DERMAL SCH (07:47)
[2017-02-22] MEDS: INSULIN ASPART SUPPLEMENTAL SCALE SQ SCH ×4 (08:00→20:46)
--- NOTE | 2017-02-22 08:07 | PD.ORT.PN ---
Subjective Subjective Remarks Sitting up in chair, ordering breakfast. Notes moderate pain left hip but 'its ok'. No complaints or new radiating leg pain, chest pain or shortness of breath. Using nicotine patch. Objective Vitals Vital Signs Date Time Temp Pulse Resp B/P (MAP) Pulse Ox O2 Delivery O2 Flow Rate FiO2 02/22/17 04:18 98.4 70 18 125/66 (85) 96 02/22/17 00:10 98.6 73 18 136/72 (93) 96 02/21/17 20:41 97.2 79 18 143/75 (97) 95 02/21/17 16:00 96.0 77 18 121/63 (82) 96 02/21/17 12:01 96 02/21/17 12:00 97.2 62 18 152/72 (98) 96 02/21/17 09:15 98.4 60 16 153/70 (97) 95 Room Air 02/21/17 09:00 61 16 144/66 (92) 95 Room Air 02/21/17 08:45 64 16 140/65 (90) 94 Room Air 02/21/17 08:39 98.4 66 16 161/67 (98) 100 Nasal Cannula 2 I/O 02/21/17 02/21/17 02/21/17 02/22/17 02/22/17 02/22/17 07:00 15:00 23:00 07:00 15:00 23:00 Intake Total 720 ml 240 ml 240 ml Output Total 950 ml 20 ml 400 ml 500 ml Balance -950 ml 700 ml -160 ml -260 ml Intake Oral 320 ml 240 ml 240 ml IV Total 400 ml Output Urine Total 950 ml 400 ml 500 ml Estimated Blood Loss 20 ml # Voids 2 # Bowel Movements 0 0 0 0 Result Diagram: 02/22/17 0630 02/22/17 0630 Imaging Last 24 hours Impressions Hip and Pelvis X-Ray 02/20/17 1344 Signed Impressions: Service Date/Time: Monday, February 20, 2017 14:44 - CONCLUSION: 1. Left femoral intertrochanteric fracture. Reggie Del Toro MD Objective Remarks Sitting up in chair bedside NAD LLE Hip dressing c/d/i, mild swelling, no erythema, minimal drainage, +motor at, +sens, +nvi Calf supple, neg homans Assessment & Plan Ortho Post Op Day #: 1 Problem List: Assessment and Plan pod#1 s/p ORIF left hip, IM rito Ortho stable today. PO pain meds. Lovenox for dvt prophylaxis. Change to xarelto at discharge. Dressing changes beginning pod#2 as ordered. WBAT. Walker as needed. Tobacco cessation reviewed. D/C planning in progress. HHC vs SNF - pt has and grandson at home. Jose Jansen or JONATHAN in 2 weeks Scripts on chart Kourtney Lopez Feb 22, 2017 08:07
[2017-02-22] MEDS: DOCUSATE SODIUM 50 MG/SENNA 8.6 MG TAB PO SCH ×2 (09:00→20:49)
[2017-02-22] MEDS: REMOVE OLD PATCH T-DERMAL SCH (09:00)
[2017-02-22] MEDS: RESP: ALBUTEROL 2.5 MG/IPRATROPIUM 0.5 MG NEB (SCH) NEB ×4 (09:39→20:17)
--- NOTE | 2017-02-22 14:30 | PD.WCN.NOT ---
Wound Consult Description: Order by for Left Leg Communicated with: Sidra BREWER [address] [place] [address] , Recommendation: 1) Apply skin prep to intact scabs on L elbow, R knee BID 2) Cleanse left lower extremity open wound with normal saline pat dry. 3) Skin prep to periwound intact eschar Cover with dry dressing Daily. 4) Follow up with out patient wound center. Additional Information: Patient was seen today by junior technical writer on [address] [place] [address]. Sidra BREWER [address] [place] [address] present with junior technical writer.Patient has a couple intact scabs on L upper extremity (~1.0cm x~1.0cm), R knee (~0.9cm x 1.0cm) no signs and symptoms of infection noted.Scabs cleansed with normal saline pat dry skin prep applied.Left lower extremity presents open moisture related wound 50% pink tissue present 50% brown scab intact.Wound measures 5.2cm x6.4cm x0.1cm scant serous fluid noted. Wound was dressing prior with Xeroform and gauze periwound maceration noted.Wound cleansed with normal saline pat dry Skin prep applied to periwound and intact scab covered with dry boarder gauze dressing.Patient tolerated wound care well.Dressing to Left hip dry and intact.Buttocks assessed due to patient stating bottom hurts.Skin intact ,blanchable no redness noted reinforced teaching on offloading and repositioning. Ostomy Date of Surgery: Feb 21, 2017 Genet Pena [facility] Feb 22, 2017 14:30
--- NOTE | 2017-02-22 14:38 | HHI.PR ---
Subjective Remarks Follow-up hip fracture, diabetes. The patient states that overall he feels better today. His glucose has been elevated. Objective Vitals Vital Signs Date Time Temp Pulse Resp B/P (MAP) Pulse Ox O2 Delivery O2 Flow Rate FiO2 02/22/17 12:33 97.3 74 18 113/63 (80) 93 02/22/17 09:40 94 02/22/17 08:00 97.8 74 17 124/69 (87) 95 02/22/17 04:18 98.4 70 18 125/66 (85) 96 02/22/17 00:10 98.6 73 18 136/72 (93) 96 02/21/17 20:41 97.2 79 18 143/75 (97) 95 02/21/17 16:00 96.0 77 18 121/63 (82) 96 I/O 02/21/17 02/21/17 02/21/17 02/22/17 02/22/17 02/22/17 07:00 15:00 23:00 07:00 15:00 23:00 Intake Total 720 ml 240 ml 240 ml Output Total 950 ml 20 ml 400 ml 500 ml Balance -950 ml 700 ml -160 ml -260 ml Intake Oral 320 ml 240 ml 240 ml IV Total 400 ml Output Urine Total 950 ml 400 ml 500 ml Estimated Blood Loss 20 ml # Voids 2 # Bowel Movements 0 0 0 0 Result Diagram: 02/22/17 0630 02/22/17 0630 Imaging Last Impressions Hip X-Ray 02/21/17 0000 Signed Impressions: Service Date/Time: Tuesday, February 21, 2017 08:10 - CONCLUSION: Anatomic alignment Roberto Barnett MD FACR Hip and Pelvis X-Ray 02/20/17 1344 Signed Impressions: Service Date/Time: Monday, February 20, 2017 14:44 - CONCLUSION: 1. Left femoral intertrochanteric fracture. Reggie Del Toro MD Chest X-Ray 02/20/17 0000 Signed Impressions: Service Date/Time: Monday, February 20, 2017 14:36 - CONCLUSION: 1. No acute abnormality or significant interval change. Reggie Del Toro MD Objective Remarks General: No acute distress. Heart: Regular rate and rhythm. No murmur. Lungs: Clear to auscultation bilaterally. No wheezes, rales, or rhonchi. Breathing is nonlabored. Abdomen: Soft, nontender, nondistended. Extremities: No lower extremity edema. Left lower leg wound bandaged. Psych: Alert and oriented. Procedures 02/21/17 Left hip reduction and intramedullary nail fixation Urinary Catheter: No Vascular Central Line Catheter: No A/P Assessment and Plan 1. Left intertrochanteric hip fracture: Appreciate orthopedic surgery recommendations. Status post left hip reduction with intramedullary nail fixation on 02/21/17. 2. Leukocytosis: Likely reactive. No apparent infection. 3. Diabetes mellitus, type II: Diabetic diet. Monitor Accu-Cheks and cover with sliding scale insulin. Restart Levemir, glimepiride. Hold metformin. 4. Tobacco abuse, suspect underlying COPD: Counseled to quit smoking. DuoNeb scheduled and as needed. 5. DVT prophylaxis: Lovenox. Jason Davis MD Feb 22, 2017 14:38
[2017-02-22] MEDS ORDERED: METOPROLOL TARTRATE 25 MG TAB PO ONE (15:00)
[2017-02-22] MEDS ORDERED: GLIMEPIRIDE 1 MG TAB PO SCH (16:00)
[2017-02-22] MEDS ORDERED: INSULIN DETEMIR 100 UNITS/ML VIAL SQ SCH (21:00)
[2017-02-23 00:31] VITALS: BP 118/63; PULSE 71; RESP 17; TEMP 98.6; O2SAT 95
[2017-02-23 04:11] VITALS: BP 104/62; PULSE 71; RESP 17; TEMP 99; O2SAT 95
[2017-02-23 08:00] VITALS: BP 108/55; PULSE 72; RESP 18; TEMP 98.2; O2SAT 93
[2017-02-23] MEDS ORDERED: GLIMEPIRIDE 1 MG TAB PO SCH (08:00)
[2017-02-23] MEDS: INSULIN ASPART SUPPLEMENTAL SCALE SQ SCH ×2 (08:00→11:31)
[2017-02-23] MEDS: RESP: ALBUTEROL 2.5 MG/IPRATROPIUM 0.5 MG NEB (SCH) NEB (08:00)
[2017-02-23] MEDS: DOCUSATE SODIUM 50 MG/SENNA 8.6 MG TAB PO SCH (08:44)
[2017-02-23] MEDS: CALCIUM/VITAMIN D 250 MG/125 U TAB PO SCH ×2 (08:44→11:31)
[2017-02-23] MEDS: ENOXAPARIN SODIUM 30 MG/0.3 ML SYRINGE SQ SCH (08:44)
[2017-02-23] MEDS: CHOLECALCIFEROL (VIT D3) 5000 UNIT CAP PO SCH (08:44)
[2017-02-23] MEDS: REMOVE OLD PATCH T-DERMAL SCH (08:45)
[2017-02-23] MEDS ORDERED: GLIM1 PO (08:45)
[2017-02-23] MEDS ORDERED: LEVEMIR SQ (08:45)
[2017-02-23] MEDS: NICOTINE 21 MG/24 HR PATCH T-DERMAL SCH (08:46)
--- NOTE | 2017-02-23 08:47 | HHI.PR ---
Subjective Remarks Follow up diabetes, hip fracture. The patient states that he feels sore today. Denies chest pain, dyspnea, nausea, vomiting. No bowel movement, but states that he does not feel constipated. Objective Vitals Vital Signs Date Time Temp Pulse Resp B/P (MAP) Pulse Ox O2 Delivery O2 Flow Rate FiO2 02/23/17 08:00 98.2 72 18 108/55 (72) 93 02/23/17 04:11 99.0 71 17 104/62 (76) 95 02/23/17 00:31 98.6 71 17 118/63 (81) 95 02/22/17 20:55 98.4 66 17 97/53 (68) 95 02/22/17 20:18 94 02/22/17 16:00 97.4 72 17 125/68 (87) 97 02/22/17 12:33 97.3 74 18 113/63 (80) 93 02/22/17 09:40 94 I/O 02/22/17 02/22/17 02/22/17 02/23/17 02/23/17 02/23/17 07:00 15:00 23:00 07:00 15:00 23:00 Intake Total 240 ml 420 ml 360 ml 120 ml Output Total 500 ml 400 ml Balance -260 ml 420 ml 360 ml -280 ml Intake Oral 240 ml 420 ml 360 ml 120 ml Output Urine Total 500 ml 400 ml # Voids 2 2 # Bowel Movements 0 0 0 0 Result Diagram: 02/22/17 0630 02/22/17 0630 Imaging Last Impressions Hip X-Ray 02/21/17 0000 Signed Impressions: Service Date/Time: Tuesday, February 21, 2017 08:10 - CONCLUSION: Anatomic alignment Roberto Barnett MD FACR Hip and Pelvis X-Ray 02/20/17 1344 Signed Impressions: Service Date/Time: Monday, February 20, 2017 14:44 - CONCLUSION: 1. Left femoral intertrochanteric fracture. Reggie Del Toro MD Chest X-Ray 02/20/17 0000 Signed Impressions: Service Date/Time: Monday, February 20, 2017 14:36 - CONCLUSION: 1. No acute abnormality or significant interval change. Reggie Del Toro MD Objective Remarks General: No acute distress. Heart: Regular rate and rhythm. No murmur. Lungs: Clear to auscultation bilaterally. No wheezes, rales, or rhonchi. Breathing is nonlabored. Abdomen: Soft, nontender, nondistended. Extremities: No lower extremity edema. Left lower leg wound bandaged. Psych: Alert and oriented. Procedures 02/21/17 Left hip reduction and intramedullary nail fixation Urinary Catheter: No Vascular Central Line Catheter: No A/P Assessment and Plan 1. Left intertrochanteric hip fracture: Appreciate orthopedic surgery recommendations. Status post left hip reduction with intramedullary nail fixation on 02/21/17. 2. Leukocytosis: Likely reactive. No apparent infection. 3. Diabetes mellitus, type II: Diabetic diet. Monitor Accu-Cheks and cover with sliding scale insulin. Continue Levemir, glimepiride. Hold metformin. Glucose control has improved. 4. Tobacco abuse, suspect underlying COPD: Counseled to quit smoking. DuoNeb scheduled and as needed. 5. DVT prophylaxis: Lovenox. Discharge Planning Per physical therapy, patient will need SNF at discharge. Case management to assist with discharge planning. Patient requesting [facility]. Jason Davis MD Feb 23, 2017 08:47
--- NOTE | 2017-02-23 08:48 | HHI.DCPOC ---
Discharge Care Plan Diagnosis: (1) Intertrochanteric fracture of right hip (2) Diabetes mellitus type 2, uncomplicated Goals to Promote Your Health * To prevent worsening of your condition and complications * To maintain your health at the optimal level Directions to Meet Your Goals Take your medications as prescribed Follow your dietary instruction Follow activity as directed Keep your appointments as scheduled Take your immunizations and boosters as scheduled If your symptoms worsen call your PCP, if no PCP go to Urgent Care Center or Emergency Room Smoking is Dangerous to Your Health. Avoid second hand smoke Call the 24-hour hour crisis hotline for domestic abuse at Jason Davis MD Feb 23, 2017 08:48
--- NOTE | 2017-02-23 09:56 | EKG ---
Date Performed: 02/20/2017 Time Performed: 16:53:38 PTAGE: 77 years EKG: Sinus rhythm MARKED LEFT AXIS DEVIATION LOW QRS VOLTAGE IN PRECORDIAL LEADS RIGHT BUNDLE BRANCH BLOCK ABNORMAL EC G PREVIOUS TRACING : 12/12/2012 15.56 Compared to prior tracing no significant change DOCTOR: Maci Lim Interpretating Date/Time 02/23/2017 09:54:24
[2017-02-23 10:08] VITALS: BP 127/55
[2017-02-23] MEDS: ACETAMINOPHEN/HYDROcodone 325 MG/7.5 MG TAB PO PRN ×2 (10:10→12:45)
[2017-02-23 10:56] LABS: AUTOMATED NEUTROPHIL # 7.8 TH/MM3 (1.8-7.7); BASOPHIL % 0.3 % (0.0-2.0); EOSINOPHIL # 0.4 TH/MM3 (0-0.4); EOSINOPHIL % 3.1 % (0.0-4.0); HEMATOCRIT 30.6 % (39.0-51.0); HEMO FLAGS DIFF FINAL; LYMPH % 28.1 % (9.0-44.0); LYMPHOCYTE # 3.5 TH/MM3 (1.0-4.8); MEAN CELL VOLUME 91.4 FL (80.0-100.0); MEAN CORPUSCULAR HEMOGLOBIN 32.1 PG (27.0-34.0); MEAN CORPUSCULAR HGB CONC 35.1 % (32.0-36.0); MONO % 5.5 % (0.0-8.0); PLATELET COUNT 247 TH/MM3 (150-450); RED BLOOD COUNT 3.35 MIL/MM3 (4.50-5.90); WHITE BLOOD COUNT 12.4 TH/MM3 (4.0-11.0)
[2017-02-23 11:16] LABS: BICARBONATE 31.3 MEQ/L (21.0-32.0); POTASSIUM 3.8 MEQ/L (3.5-5.1)
--- NOTE | 2017-02-23 11:31 | HHI.DS ---
Discharge Summary Admission Date Feb 20, 2017 at 16:04 Discharge Date: Feb 23, 2017 Admitting Diagnosis left intertrochanteric hip fracture (1) Diabetes mellitus type 2, uncomplicated ICD Code: E11.9 - Diabetes mellitus type 2, uncomplicated Status: Chronic (2) Intertrochanteric fracture of right hip ICD Code: S72.141A - Displaced intertrochanteric fracture of right femur, initial encounter for closed fracture Procedures 02/21/17 Left hip reduction and intramedullary nail fixation Brief History - From Admission This is a 77yo male with a PMHX of DM type 2 and ongoing tobaccoism who presents to [facility] ED with complaints of left hip pain s/p fall. Patient states he caught his left foot while trying to get out of his truck and fell to the concrete. He denies hitting his head or loss of consciousness. He has not been able to bear any weight since the injury. He attempted to walk to the bathroom and fell again. In the ED, xray of the left hip was obtained and revealed an intertrochanteric hip fracture. CBC/BMP: 02/23/17 1010 02/23/17 1000 Significant Findings Laboratory Tests Test 02/20/17 15:20 02/20/17 15:30 02/21/17 06:12 02/22/17 06:30 Urine Ketones TRACE mg/dL (NEG) White Blood Count 17.3 TH/MM3 (4.0-11.0) 14.1 TH/MM3 (4.0-11.0) 17.1 TH/MM3 (4.0-11.0) Red Blood Count 3.89 MIL/MM3 (4.50-5.90) 3.87 MIL/MM3 (4.50-5.90) 3.81 MIL/MM3 (4.50-5.90) Hemoglobin 11.7 GM/DL (13.0-17.0) 12.1 GM/DL (13.0-17.0) 11.8 GM/DL (13.0-17.0) Hematocrit 35.9 % (39.0-51.0) 35.6 % (39.0-51.0) 34.9 % (39.0-51.0) Neutrophils (%) (Auto) 71.0 % (16.0-70.0) 70.1 % (16.0-70.0) Neutrophils # (Auto) 12.3 TH/MM3 (1.8-7.7) 9.4 TH/MM3 (1.8-7.7) 12.0 TH/MM3 (1.8-7.7) Monocytes # (Auto) 1.0 TH/MM3 (0-0.9) 1.0 TH/MM3 (0-0.9) 1.1 TH/MM3 (0-0.9) Albumin 3.1 GM/DL (3.4-5.0) 3.2 GM/DL (3.4-5.0) Aspartate Amino Transf (AST/SGOT) 11 U/L (15-37) 8 U/L (15-37) Hemoglobin A1c 7.8 % (4.3-6.0) Phosphorus Level 2.4 MG/DL (2.5-4.9) 25-Hydroxy Vitamin D Total 28.9 ng/ML (30-100) 23.4 ng/ML (30-100) Blood Urea Nitrogen 19 MG/DL (7-18) Random Glucose 190 MG/DL (74-106) Estimat Glomerular Filtration Rate 82 ML/MIN (>89) Test 02/23/17 10:00 02/23/17 10:10 Random Glucose 139 MG/DL (74-106) Anion Gap 4 MEQ/L (5-15) White Blood Count 12.4 TH/MM3 (4.0-11.0) Red Blood Count 3.35 MIL/MM3 (4.50-5.90) Hemoglobin 10.8 GM/DL (13.0-17.0) Hematocrit 30.6 % (39.0-51.0) Neutrophils # (Auto) 7.8 TH/MM3 (1.8-7.7) Imaging Last Impressions Hip X-Ray 02/21/17 0000 Signed Impressions: Service Date/Time: Tuesday, February 21, 2017 08:10 - CONCLUSION: Anatomic alignment Roberto Barnett MD FACR Hip and Pelvis X-Ray 02/20/17 1344 Signed Impressions: Service Date/Time: Monday, February 20, 2017 14:44 - CONCLUSION: 1. Left femoral intertrochanteric fracture. Reggie Del Toro MD Chest X-Ray 02/20/17 0000 Signed Impressions: Service Date/Time: Monday, February 20, 2017 14:36 - CONCLUSION: 1. No acute abnormality or significant interval change. Reggie Del Toro MD PE at Discharge General: No acute distress. Heart: Regular rate and rhythm. No murmur. Lungs: Clear to auscultation bilaterally. No wheezes, rales, or rhonchi. Breathing is nonlabored. Abdomen: Soft, nontender, nondistended. Extremities: No lower extremity edema. Left lower leg wound bandaged. Psych: Alert and oriented. Hospital Course She was admitted for management of left intertrochanteric hip fracture. Orthopedic surgery was consulted. Intramedullary nail fixation was done on 02/21. Routine postoperative care was continued. The patient's glucose increased and his diabetic medications were restarted with the exception of metformin. Glucose control improved. [place] to be stable for discharge to SNF. Pt Condition on Discharge: Stable Discharge Disposition: Discharge to SNF Discharge Time: > 30 minutes Discharge Instructions DIET: Follow Instructions for: Diabetic Diet Activities you can perform: Regular-No Restrictions Follow up Referrals: Orthopedics - 2 Weeks @ [facility] with Misbah Jansen MD PCP Follow-up - 2 Weeks New Medications: Calcium Carbonate-Vitamin D (Calcium 600+D 200) 600-200 Mg-Unit Tab 1 TAB PO BID for Nutritional Supplement for 30 Days, #60 TAB 0 Refills Cholecalciferol (Vitamin D3) 2,000 Unit Cap 2000 UNITS PO DAILY for Nutritional Supplement for 30 Days, CAP 0 Refills Ergocalciferol (Ergocalciferol) 50,000 Unit Cap 45878 UNITS PO Q7D for Nutritional Supplement, #6 CAP Hydrocodone-Acetaminophen (Hydrocodone-Acetaminophen) 7.5 Mg-325 Mg Tab 1 TAB PO Q4H PRN for PAIN, #60 TAB 0 Refills Rivaroxaban (Xarelto) 10 Mg Tab 10 MG PO DAILY for Blood Clot Prevention, #14 TAB 0 Refills Walker/Adult/Folding (Walker/Adult/Folding) 1 Mis Mis EA .ROUTE DIRECTED, #1 0 Refills Glimepiride (Amaryl) 1 Mg Tab 1 MG PO BID@0800,1700 for Blood Sugar Management, #60 TAB Insulin Detemir Inj (Levemir Inj) 1,000 unit/ 10 ML Vial 13 UNITS SQ HS for Blood Sugar Management, #30 INJECTION Do not mix with any other Insulin. Continued Medications: Metformin XR 24 HR (Glucophage XR 24 HR) 500 Mg Tab 1000 PO BID Discontinued Medications: Glimepiride (Glimepiride) 1 Mg Tab 0 PO Hydrocodone/Acetaminophen 5 mg/325 mg (Lortab 5 mg/325 mg) 1 Tab 1 TAB PO Q6H PRN for PAIN, #20 TAB Insulin Glargine (Lantus) 100 Units/Ml Inj 10 UNIT SC HS, INJ Jason Davis MD Feb 23, 2017 11:31
[2017-02-23 12:00] VITALS: BP 103/66; PULSE 78; RESP 18; TEMP 98.5; O2SAT 92
== END 2017-02-23 13:33 | DRG 482 ==
LOC: NEPE 13:34 → NEDA 16:04 → N06A 17:03
PROVIDERS: ADMIT Family Medicine; ATTEND Family Medicine
PROC: 0T9B70Z Drainage of Bladder with Drainage Device, Via Natural or Artificial Opening (ICD-10-PCS; principal; 2017-02-20)
PROC: 0QS706Z Reposition Left Upper Femur with Intramedullary Internal Fixation Device, Open Approach (ICD-10-PCS; 2017-02-21)
DX: S72.142A Displaced intertrochanteric fracture of left femur, initial encounter for closed fracture (principal); J44.9 Chronic obstructive pulmonary disease, unspecified; E11.9 Type 2 diabetes mellitus without complications; D72.829 Elevated white blood cell count, unspecified; K59.00 Constipation, unspecified; F17.210 Nicotine dependence, cigarettes, uncomplicated; W17.89XA Other fall from one level to another, initial encounter; Z79.4 Long term (current) use of insulin
CPT/HCPCS: 71010; 73502; 76000; 80048; 80053; 81001; 82306; 82948; 83036; 83735; 84100; 85025; 85610; 85730; 86850; 86900; 86901; 93005; 94640; 94664; C1713; J0131; J0690; J1650; J1815; J3370; J7050